=== PATIENT | female | born 1965 | race Caucasian/White ===

== ENCOUNTER 2020-07-30 18:31 | Emergency (ER) | payer BC ==
[2020-07-30 18:37] VITALS: BP 152/83; PULSE 106; RESP 18; TEMP 98.4
[2020-07-30] MEDS ORDERED: KETOROLAC 15 MG/ML 1 ML VIAL IM STA (20:06)
[2020-07-30] MEDS ORDERED: methylPREDNISolone SOD SUCCI 125 MG/2 ML VIAL IM STA (20:06)
[2020-07-30] MEDS ORDERED: traMADol 50 MG STARTER PACK 3 TAB BTL PO STA (20:08)
--- NOTE | 2020-07-30 20:28 | ED ---
General Adult HPI - General Chief complaint: Back Pain/Injury Stated complaint: Back pain Source: patient, RN notes reviewed Mode of arrival: ambulatory Limitations: no limitations - History of Present Illness Initial comments: 55-year-old female with a past medical history of chronic back pain presents to the emergency room for worsening back pain. Patient reports that she has been dealing a slipped disc for the past 11 months. States that this seems to be worsening and is now radiating down the right leg at times. States she has had steroids before which have helped but cannot get into her doctor for another 2 weeks. Patient denies bladder or bowel changes. Denies numbness or tingling of the lower extremities. Denies saddle anesthesia. Denies fevers or chills. Denies weakness of the legs.Patient has no other complaints at this time including shortness of breath, chest pain, abdominal pain, nausea or vomiting, headache, or visual changes. - Related Data Allergies Allergy/AdvReac Type Severity Reaction Status Date / Time codeine Allergy Unknown Verified 07/30/20 18:36 morphine Allergy Anaphylaxis Verified 07/30/20 19:52 Penicillins Allergy Unknown Verified 07/30/20 18:36 Review of Systems ROS Statement: Those systems with pertinent positive or pertinent negative responses have been documented in the HPI. ROS Other: All systems not noted in ROS Statement are negative. Past Medical History Past Medical History: Hypertension Additional Past Medical History / Comment(s): back pain History of Any Multi-Drug Resistant Organisms: None Reported Past Surgical History: Hysterectomy Additional Past Surgical History / Comment(s): lumpectomy Past Psychological History: No Psychological Hx Reported Smoking Status: Current some day smoker Past Alcohol Use History: None Reported Past Drug Use History: None Reported General Exam Limitations: no limitations General appearance: alert, in no apparent distress Head exam: Present: atraumatic, normocephalic, normal inspection Eye exam: Present: normal appearance, PERRL, EOMI. Absent: scleral icterus, conjunctival injection, periorbital swelling ENT exam: Present: normal exam, mucous membranes moist Neck exam: Present: normal inspection. Absent: tenderness, meningismus, lymphad enopathy Respiratory exam: Present: normal lung sounds bilaterally. Absent: respiratory distress, wheezes, rales, rhonchi, stridor Cardiovascular Exam: Present: regular rate, normal rhythm, normal heart sounds. Absent: systolic murmur, diastolic murmur, rubs, gallop, clicks GI/Abdominal exam: Present: soft, normal bowel sounds. Absent: distended, tenderness, guarding, rebound, rigid Extremities exam: Present: normal capillary refill (Sensation intact lower extremity, capillary refill less than 2 seconds,), other (Strength 5 out of 5 in lower extremities.) Back exam: Absent: CVA tenderness (R), CVA tenderness (L), vertebral tenderness Neurological exam: Present: normal gait Course Vital Signs 07/30/20 18:33 Temperature 98.4 F Pulse Rate 106 H Respiratory 18 Rate Blood Pressure 152/83 O2 Sat by Pulse 99 Oximetry Medical Decision Making - Medical Decision Making Patient is having acute on chronic back pain. Neurovascular status intact in the lower extremity. No red flag symptoms. patient has apparently had an MRI showing a bulging disc about one month ago. We will start patient on steroids . She was encouraged not to take Motrin while taking the steroid as it may cause stomach issues. She will follow-up with her doctor at her appointment and try to get in earlier if possible. She will return if she has any worsening symptoms. Disposition Clinical Impression: Mechanical back pain Disposition: HOME SELF-CARE Condition: Good Instructions (If sedation given, give patient instructions): Acute Low Back Pain (ED) Additional Instructions: Please take steroid as directed. Do not take Motrin while taking steroid as this may injury her stomach lining. Take tramadol as needed but do not drive or operate machinery while taking this. Follow-up with your doctor in one to 2 days. If you have any worsening symptoms such as bladder or bowel changes, weakness of the lower extremities, tingling in the groin or buttock, or fevers return to the emergency room immediately. Is patient prescribed a controlled substance at d/c from ED?: No Referrals: Charanjit Blankenship DO [Primary Care Provider] - 1-2 days Time of Disposition: 20:31
== END 2020-07-30 20:44 | disposition home or self-care (01) ==
LOC: EC 18:31
DX: M54.9 Dorsalgia, unspecified (principal); G89.29 Other chronic pain; F17.200 Nicotine dependence, unspecified, uncomplicated; Z88.0 Allergy status to penicillin; Z88.5 Allergy status to narcotic agent
CPT/HCPCS: 99283; 96372 ×2; J2930; J1885

== ENCOUNTER 2023-02-22 03:45 | Emergency (ER) | payer BC ==
[2023-02-22 03:53] VITALS: BP 145/94; PULSE 99; RESP 18; TEMP 98.8
[2023-02-22] MEDS ORDERED: DEXAMETHASONE SOD PHOSPHATE 4 MG/ML 1 ML VIAL IM STA (04:51)
[2023-02-22] MEDS ORDERED: LEVOFLOXACIN 750 MG TAB PO STA (04:51)
--- NOTE | 2023-02-22 04:51 | ED ---
General Adult HPI - General Chief complaint: ENT Stated complaint: Sinus Infection,Body Pain Time Seen by Provider: 02/22/23 04:05 Source: patient, RN notes reviewed, old records reviewed Mode of arrival: ambulatory Limitations: no limitations - History of Present Illness Initial comments: Patient is a 57 year old female presents emergency Department complaining of sinus pain. Has progressed over the last day. He complains of pain over her cheeks, as well as rhinorrhea and nasal congestion. Presents for further evaluation this time. No fevers. No sore throat. No cough. No chest pain. No other acute complaints at this time. Presents here for evaluation. Patient's was a contact recently. - Related Data Previous Rx's Medication Instructions Recorded predniSONE 50 mg PO DAILY #5 tablet 07/30/20 Levofloxacin [Levaquin] 750 mg PO DAILY 7 Days #7 tab 02/22/23 Allergies Allergy/AdvReac Type Severity Reaction Status Date / Time codeine Allergy Unknown Verified 02/22/23 03:53 morphine Allergy Anaphylaxis Verified 02/22/23 03:53 Penicillins Allergy Unknown Verified 02/22/23 03:53 Review of Systems ROS Statement: Those systems with pertinent positive or pertinent negative responses have been documented in the HPI. Review of Systems: CONST: Denies fever EYES: Denies blurry vision ENT: Endorses nasal congestion C/V: Denies Chest pain RESP: Denies shortness of breath GI: Denies abdominal pain : Denies dysuria SKIN: Denies rash. MSK: Denies joint pain. NEURO: Denies headache ROS Other: All systems not noted in ROS Statement are negative. Past Medical History Past Medical History: Hypertension Additional Past Medical History / Comment(s): back pain History of Any Multi-Drug Resistant Organisms: None Reported Past Surgical History: Hysterectomy Additional Past Surgical History / Comment(s): lumpectomy Past Psychological History: No Psychological Hx Reported Smoking Status: Current some day smoker Past Alcohol Use History: Occasional Past Drug Use History: None Reported General Exam - General Exam Comments Initial Comments: General: Appears in no acute distress. HEAD: Normal with no signs of head trauma. EYES: EOMI. pupils equal round and reactive to light. Pupils are 3 mm equal bilaterally. ENT: Hearing grossly intact. Sinus tenderness palpation over bilateral maxillary sinuses. Rhinorrhea present. No stridor RESPIRATORY: No respiratory distress. No hypoxia. Clear breath sounds bilaterally. C/V: Regular rate and rhythm. ABD: Abdomen is nondistended. EXT: No obvious deformity. SKIN: No rashes or lesions observed on exposed skin. NEURO: Alert and oriented.Cranial nerve exam within normal limits. No neurological deficits. Limitations: no limitations Course Vital Signs 02/22/23 03:49 Temperature 98.8 F Pulse Rate 99 Respiratory 18 Rate Blood Pressure 145/94 O2 Sat by Pulse 100 Oximetry Medical Decision Making - Medical Decision Making Was pt. sent in by a medical professional or institution (IVAN Luna, FINANCIAL REPORTING MANAGER, urgent care, hospital, or shelter...) When possible be specific @ -No Did you speak to anyone other than the patient for history (EMS, parent, family, police, friend...)? What history was obtained from this source @ -No Did you review nursing and triage notes (agree or disagree)? Why? @ -I reviewed and agree with nursing and triage notes Were old charts reviewed (outside hosp., previous admission, EMS record, old EKG, old radiological studies, urgent care reports/EKG's, shelter records)? Report findings @ -No old charts were reviewed Differential Diagnosis (chest pain, altered mental status, abdominal pain women, abdominal pain men, vaginal bleeding, weakness, fever, dyspnea, syncope, headache, dizziness, GI bleed, back pain, seizure, CVA, palpatations, mental health, musculoskeletal)? @ -Sinus infection, viral infection. This list is not all-inclusive. EKG interpreted by me (3pts min.). @ -None done X-rays interpreted by me (1pt min.). @ -None done CT interpreted by me (1pt min.). @ -None done U/S interpreted by me (1pt. min.). @ -None done What testing was considered but not performed or refused? (CT, X-rays, U/S, labs)? Why? @ -I offered viral swabs which were declined. What meds were considered but not given or refused? Why? @ -None Did you discuss the management of the patient with other professionals (professionals i.e. IVAN Luna, FINANCIAL REPORTING MANAGER, lab, RT, psych nurse, school social worker, traffic reporter, teacher, transportation security officer, case preparer and liner)? Give summary @ -No Was smoking cessation discussed for >3mins.? @ -No Was critical care preformed (if so, how long)? @ -No Were there social determinants of health that impacted care today? How? (Homelessness, low income, unemployed, alcoholism, drug addiction, transportation, low edu. Level, literacy, decrease access to med. care, care home, rehab)? @ -No Was there de-escalation of care discussed even if they declined (Discuss DNR or withdrawal of care, Hospice)? DNR status @ -No What co-morbidities impacted this encounter? (DM, HTN, Smoking, COPD, CAD, Cancer, CVA, ARF, Chemo, Hep., AIDS, mental health diagnosis, sleep apnea, morbid obesity)? @ -None Was patient admitted / discharged? Hospital course, mention meds given and route, prescriptions, significant lab abnormalities, going to OR and other pertinent info. @ -Patient presents with what appears to be a sinus infection. She declines viral testing at this time. Vital signs within acceptable limits. We did discuss antibodies versus no antibiotics. Patient is requesting to be started on something as she was having some URI infections last week. She'll be given a dose of Decadron and started on Levaquin and she does have a penicillin ALLERGY. She was in agreement this plan. Strict return precautions discussed. She will follow-up with her PCP. I will provide the patient with a prescription for Levaquin. I instructed the patient to follow up with their PCP in the next 1-3 days. I explained that the patient should return to the emergency department if they experience any worsening symptoms. Strict return precautions were discussed with the patient. The patient expressed understanding of these instructions. I answered all questions that the patient had. The patient was discharged home in good condition with their prescriptions and follow up information. Undiagnosed new problem with uncertain prognosis? @ -No Drug Therapy requiring intensive monitoring for toxicity (Heparin, Nitro, Insulin, Cardizem)? @ -No Were any procedures done? @ -No Diagnosis/symptom? @ -Sinus infection Acute, or Chronic, or Acute on Chronic? @ -Acute Uncomplicated (without systemic symptoms) or Complicated (systemic symptoms)? @ -Complicated Side effects of treatment? @ -No Exacerbation, Progression, or Severe Exacerbation? @ -No Poses a threat to life or bodily function? How? (Chest pain, [place], MA, pneumonia, PE, COPD, DKA, ARF, appy, cholecystitis, CVA, Diverticulitis, Homicidal, Suicidal, threat to staff... and all critical care pts) @ -No Disposition Clinical Impression: Sinus infection Disposition: HOME SELF-CARE Condition: Good Instructions (If sedation given, give patient instructions): Sinusitis (ED) Prescriptions: Levofloxacin [Levaquin] 750 mg PO DAILY 7 Days #7 tab Is patient prescribed a controlled substance at d/c from ED?: No Referrals: Charanjit Blankenship DO [Primary Care Provider] - 1-2 days Time of Disposition: 04:50
== END 2023-02-22 05:25 | disposition home or self-care (01) ==
LOC: EC 03:45
DX: J32.9 Chronic sinusitis, unspecified (principal); I10 Essential (primary) hypertension; F17.200 Nicotine dependence, unspecified, uncomplicated; Z88.0 Allergy status to penicillin; Z88.5 Allergy status to narcotic agent
CPT/HCPCS: 99283; 96372; J1100